=== PATIENT | female | born 1930 | race Caucasian/White ===

== ENCOUNTER 2019-01-11 10:28 | Outpatient (CLI) | payer MEDICARE ==
--- NOTE | 2019-01-11 10:42 | RAD ---
Exam: Chest 2 views HISTORY:Chest congestion Comparison: None FINDINGS: Lungs: No masses or consolidation. Biapical pleural irregularity. There is granulomatous calcification. Cardiac silhouette: Normal size. There is vascular calcification. Pulmonary vessels: Normal Pleural Spaces: Clear Pneumothorax: None Osseous abnormalities: None of acuity. IMPRESSION: No focal consolidation.
== END 2019-01-11 10:29 | disposition home or self-care (01) ==
LOC: RAD-FRANK 10:28
PROVIDERS: ATTEND Nurse Practitioner Family
DX: R09.89 Other specified symptoms and signs involving the circulatory and respiratory systems (principal)
CPT/HCPCS: 71046